=== PATIENT | male | born 1990 | race Caucasian/White ===

== ENCOUNTER 2024-03-15 14:48 | Emergency (ER) | payer MEDICAID, SELFPAY ==
[2024-03-15 14:49] VITALS: BP 125/79; PULSE 69; RESP 16; TEMP 36.6; O2SAT 99; BMI 22.2
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
--- NOTE | 2024-03-15 15:15 | RAD_ITS ---
STUDY: X-RAY - RIGHT HAND, ATTENTION FOURTH FINGER REASON FOR EXAM: Male, 33 years old. Injury to ring finger TECHNIQUE: 3 views of the right fourth finger were obtained. COMPARISON: None. FINDINGS: Normal metacarpal head. Normal metacarpophalangeal joint. Normal proximal phalanx. There is a fracture at the lateral/radial base of the middle phalanx. Normal distal phalanx. Normal distal interphalangeal joint. There is mild soft tissue swelling of the fourth finger. RAD/Finger(s) Min 2 Views IMPRESSION: Fracture at the lateral/radial base of the fourth middle phalanx. Mild soft tissue swelling of the fourth finger. Electronically Signed: Arslan Mcdaniel MD at 15:33 EDT ,
== END 2024-03-15 15:51 | disposition home or self-care (01) ==
LOC: ED 15:43
PROVIDERS: Emergency Provider Emergency Medicine; Visit Provider Emergency Medicine
DX: S62.624A Displaced fracture of middle phalanx of right ring finger, initial encounter for closed fracture (principal); Y04.8XXA Assault by other bodily force, initial encounter
CPT/HCPCS: 73140; 99283

== ENCOUNTER 2024-07-04 15:47 | Emergency (ER) | payer MEDICAID, SELFPAY ==
[2024-07-04 15:47] VITALS: BP 141/73; PULSE 71; RESP 15; TEMP 36.4; O2SAT 97; BMI 21.3
--- NOTE | 2024-07-04 17:16 | CT_ITS ---
EXAM: CT MAXILLOFACIAL WITHOUT INTRAVENOUS CONTRAST CLINICAL INDICATION: facial injury TECHNIQUE: Helically acquired images were obtained of the face without intravenous contrast. CTDIvol = ( 29.38 ) mGy, DLP = ( 518.07 ) mGycm This CT exam was performed using one or more of the following dose reduction techniques: automated exposure control, adjustment of the mA and/or kV according to patient size, and/or use of iterative reconstruction technique. COMPARISON: No relevant prior studies available. FINDINGS: BONES/JOINTS: Acute nasal bone fracture, nondisplaced. No discrete lytic or blastic abnormalities. SOFT TISSUES: Unremarkable. No focal subcutaneous swelling. No discrete fluid collections. ORBITS: Unremarkable. Both globes are unremarkable. Extraocular muscles are normal. Retrobulbar fat appears unremarkable. SINUSES: Mild scattered paranasal sinus mucosal thickening. MASTOID AIR CELLS: Unremarkable as visualized. Clear. DENTAL: No acute findings. No periodontal osseous erosion. CT/Sinus/Facial Bone IMPRESSION: Acute nasal bone fracture, nondisplaced. No other maxillofacial fracture. Electronically Signed: El Ashley MD at 18:44 EST ,
--- NOTE | 2024-07-04 17:16 | CT_ITS ---
EXAM: CT HEAD WITHOUT INTRAVENOUS CONTRAST CLINICAL INDICATION: head injury TECHNIQUE: Multiple axial images were obtained of the head without intravenous contrast. CTDIvol = ( 44.99 ) mGy, DLP = ( 782.05 ) mGycm This CT exam was performed using one or more of the following dose reduction techniques: automated exposure control, adjustment of the mA and/or kV according to patient size, and/or use of iterative reconstruction technique. COMPARISON: No relevant prior studies available. FINDINGS: BRAIN AND EXTRA-AXIAL SPACES: Unremarkable. No intra- or extra-axial hemorrhage. No evidence of acute infarct. No intracranial mass or mass effect. There is preservation of the becker/white matter interface. Posterior fossa structures are unremarkable. Ventricles are appropriate for age. No hydrocephalus. Basal cisterns are patent. BONES/JOINTS: Unremarkable. No discrete lytic or blastic abnormalities. SINUSES: Scattered paranasal sinus mucosal thickening. MASTOID AIR CELLS: Unremarkable. Clear. ORBITS: Visualized globes, extraocular muscles, optic nerves and retrobulbar fat appear unremarkable. CT/Brain/Head without Contrast IMPRESSION: No acute disease Electronically Signed: El Ashley MD at 18:36 EST ,
--- NOTE | 2024-07-04 17:18 | EDS_ITS ---
HPI HPI - Fall History of Present Illness Chief Complaint: Fall Informant: patient Narrative Narrative: Presents for evaluation headache facial pain since a fall 12 days ago. He was helping move heavy armoire onto a truck when he slipped hitting the side. Not lose conscious. Pain to right face is had numbness to his cheek and upper lip since then. Headache for the past week. No nausea or vomiting. Is not on any anticoagulation medications. No other injuries. States he has been working a lot therefore did not have time to get this evaluated. Prior similar symptoms: No PFSH PFSH Allergy/AdvReac Type Severity Reaction Status Date / Time No Known Allergies Allergy Verified 07/04/24 15:47 Social History Smoking Status: Never smoker ROS ROS ED Constitutional Constitutional ED: Denies chills, fever(s) or sweats ENT ENT ED: Denies sore throat Cardiovascular Cardiovascular: Denies chest pain, leg edema, palpitations or racing heartbeat Respiratory/Chest Respiratory/Chest: Denies cough, dyspnea or dyspnea on exertion Gastrointestinal Gastrointestinal: Denies abdominal pain, diarrhea, nausea or vomiting Genitourinary Genitourinary ED: Denies dysuria, hematuria or urinary frequency Musculoskeletal Musculoskeletal: Denies back pain, extremity pain or neck pain Integumentary Denies rash or wounds Neurologic Neurologic: Reports headache(s) and paresthesias; Denies weakness EXAM Physical Exam Const Vital Signs: 07/04/24 15:47 07/04/24 17:10 07/04/24 18:54 Temperature 97.5 F L Temperature Source Temporal Pulse Rate 71 64 Respiratory Rate 15 18 Respiratory Effort Normal Non-Labored Respiratory Depth Normal Respiratory Pattern Normal Blood Pressure 141/73 H 116/79 Blood Pressure Mean 95 91 Pulse Ox 97 98 Oxygen Delivery Method Room Air Room Air 07/04/24 19:39 Temperature 98.0 F Temperature Source Pulse Rate 76 Respiratory Rate 18 Respiratory Effort Respiratory Depth Respiratory Pattern Blood Pressure 110/64 Blood Pressure Mean 79 Pulse Ox 100 Oxygen Delivery Method Positive well nourished and well developed Constitutional Narrative: GCS 15. General Appearance ED: well developed and NAD HEENT Reports moist mucous membranes HEENT Narrative: Tenderness episcopal right side, no TMJ tenderness no trismus. Minimal tenderness zygomatic bone. Decree sensation maxillary right upper lip region. No dental injury. normocephalic and atraumatic Eyes Eyes Narrative: Right lateral strip of subconjunctival hemorrhage, negative Kunal sign. General Eye ED: Yes normal appearance of both eyes Neck full ROM and no lymphadenopathy Chest Wall inspection of chest normal and palpation of chest normal Chest: Negative for tenderness Resp normal respiratory effort and normal air movement Effort and Inspection: symmetric chest movement; Negative for respiratory distress Cardio regular rate, regular rhythm and no murmurs Peripheral Pulses: pulses 2+ throughout GI normal to inspection, nondistended, normoactive bowel sounds and non-tender Palpation: Negative for guarding or rebound tenderness present Back/Spine Back/Spine Narrative: No midline thoracic or lumbar tenderness. Extremity normal to inspection General Extremety ED: Negative for edema or tenderness General Extremity: Negative for edema Neuro oriented x3, CN's II-XII intact bilaterally and no sensory deficits noted Sensorium / Orientation: awake and alert Skin no rashes or lesions noted and no wounds MDM MDM MDM Narrative Medical decision making narrative: Interventions / MDM: Differential diagnosis: Concussion, head injury, fracture Diagnosis considered but do not suspect: Intracranial hemorrhage however CT negative. My EKG interpretation: N/A Imaging independently reviewed and interpreted by myself: CT brain: No acute process. CT facial bone nondisplaced nasal bone fracture also read by radiology. External documents reviewed: N/A Test considered but not ordered:N/A ED course: Head injury concussion symptoms. Tenderness to the temporal region along having paresthesia's along the infraorbital nerve region. Mild tenderness at the zygomatic area. Due to region of tenderness, will obtain CT brain and CT facial bones for further evaluation. CT scan nondisplaced nasal bone fracture no other acute process. Discussed results with the patient. Discussed concussion with the patient. To use T ylenol as needed for headaches. Given ENT referral if he chooses outpatient evaluation. All questions were answered. Re-evaluation: stable Disposition discussed with patient/family/significant other: Patient Case discussed with consulting clinician: N/A This note was generated with [employer] dictation software. It may contain incorrect words, spelling, and punctuation that were not noted in checking the note before signing. Radiography Diagnostic Testing: Clinical Impression(s) from Imaging Studies Brain CT 07/04/24 17:16 IMPRESSION: No acute disease Electronically Signed: El Ashley MD at 18:36 EST , Facial/Sinus 07/04/24 17:16 IMPRESSION: Acute nasal bone fracture, nondisplaced. No other maxillofacial fracture. Electronically Signed: El Ashley MD at 18:44 EST , Discharge Plan Triage Chief Complaint: Fall ED Provider: Reyes Jarvis Dx/Rx/DC Orders Clinical Impression: Concussion, Head injury, Closed fracture nasal bone, Paresthesia, CHIKA (subconjunctival hemorrhage) Instructions: ED Concussion, ED Nose Fracture, with X-Ray, ED Head Injury (Adult) Stand Alone Forms: ED Work / School Excuse Primary Care Provider: Care Physician,No Primary Referrals: Familia Bassett MD [[facility] Staff - Active Staff] - 1-2 Weeks [facility] Doctor,Out of [Non-Staff] - Activity Restrictions/Additional Instructions: Your CT brain and facial bone negative intracranial hemorrhage. No facial bone fracture. Nondisplaced nasal bone fracture. This will heal without any treatment requirements. You have numbness to your cheek likely compression from the nerve from injury, this will take time to improve. Use Tylenol up to 1 g every 6 hours as needed for headache. Follow-up with your doctor. You can follow-up with ENT if you want outpatient evaluation discussion for your nasal bone fracture. Print Language: Chinese Disposition Disposition: Home, Self Care Discharge Date/Time: 07/04/24 19:39
--- NOTE | 2024-07-04 18:37 | CM.ED ---
Social Work Reason for visit: No PCP Patient verified that he does not have a primary care physician at this time. [facility] provider directory given to patient. No further needs identified at this time. Lorna Sofia, PAINTER FOREMAN, [employer] ENGINEER
[2024-07-04 18:54] VITALS: BP 116/79; PULSE 64; RESP 18; O2SAT 98
[2024-07-04 19:39] VITALS: BP 110/64; PULSE 76; RESP 18; TEMP 36.7; O2SAT 100
== END 2024-07-04 19:39 | disposition home or self-care (01) ==
PROVIDERS: Emergency Provider Emergency Medicine; Referring Provider Emergency Medicine; Visit Provider Emergency Medicine
DX: S06.0X0A Concussion without loss of consciousness, initial encounter (principal); S02.2XXA Fracture of nasal bones, initial encounter for closed fracture; R20.2 Paresthesia of skin; W19.XXXA Unspecified fall, initial encounter
CPT/HCPCS: 70450; 70486; 99282

== ENCOUNTER 2025-02-13 19:32 | Emergency (ER) | payer MEDICAID, SELFPAY ==
[2025-02-13 19:33] VITALS: BP 139/110; PULSE 84; RESP 18; TEMP 37; O2SAT 98; BMI 25.1
== END 2025-02-13 20:38 | disposition left against medical advice (07) ==
LOC: ED 20:54
DX: Z53.21 Procedure and treatment not carried out due to patient leaving prior to being seen by health care provider (principal)

== ENCOUNTER 2025-04-02 15:29 | Emergency (ER) | payer MEDICAID, SELFPAY ==
[2025-04-02 15:31] VITALS: BP 135/98; PULSE 98; RESP 16; TEMP 36.9; O2SAT 98; BMI 22.3
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
--- OUTSIDE RECORDS SUMMARY | 2025-04-02 16:10 | XMS RPT_ITS | CCD ---
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 Physician Facility:[facility] [place] Start: 10-01-2024 End: 10-01-2024 ambulatory IRENE CAMPOS Facility:[facility] Start: 07-04-2024 End: 07-04-2024 Emergency department patient visit No Primary Care Physician Facility:[facility] Start: 07-01-2024 End: 07-01-2024 Patient encounter procedure Berenice Pacheco LEAD [employer]MER[employer] Work Phone: [facility] Comment on above: Procedure not carmencita d out (Primary Dx) Start: 07-01-2024 End: 07-01-2024 ambulatory IRENEDELMA QUIÑONEZK Facility:[facility] Start: 03-15-2024 End: 03-15-2024 Emergency department patient visit Remus Lorenzo Facility:[facility] Start: 06-26-2023 End: 06-26-2023 ambulatory AMANDA CATALAN [facility] Start: 05-14-2023 Unknown NONE NONE [facility] Plan of Treatment Date Care Activity Detail Author Start: 2024 Lipid panel Lipid Screening [facility] Start: 02-07-2024 Covid-19 Vaccine ( season) Covid-19 Vaccine ( season) [facility] Start: 02-07-2024 Influenza vaccination Influenza Vacc ine (#1) [facility] Start: 04-11-2023 Urine microalbumin profile DTa P,Tdap,Td Vaccine (1 - Tdap) [facility] Start: 2008 Hepatitis B Vaccine (1 of 3 - 19+ 3-dose series) Hepatitis B Vaccine (1 of 3 - 19+ 3-dose series) [facility] Start: 2007 Anxiety Screening Anxiety Screening [facility] Start: 2007 [facility]: 2007 Hepatitis C screening Hepatitis C Zay escamilla [facility] Payers Date Payer Category Payer Self-pay 2023 Medicaid [employer] [place] [id number] 2023-Present [phone] [address] [place] [address] Medicaid [id number] 2023 Unknown [id number] 1989 Unknown [id number] Unknown [id number] Unknown [id number] Unknown [id number] Unknown [id number] Social History Date Type Detail Facility Tobacco smoking status TXIS Tobacco smoking consumption unknown [facility] Start: 1990 Sex assigned at Not on file [facility] Gender identity Not on file [facility] in Start: 07-04-2024 Tobacco smoking status TXIS Never smoked tobacco (finding) [facility] Start: 1990 Sex Assigned At Male [facility] Progress note 10-01-2024 Note Date & Type Note Facility 10-01-2024 Note HNO ID: [id number] Author: IRENE CAMPOS APRN.HOME [employer] Service: ? Author Type: Nurse Practitioner Type: Progress Notes Filed: 10/01/2024 12:51 Note Text: Subjective The history is provided by the patient. No inspector fuel hose was used. AAMIR Weinberg is a 34 year old male who presents today for CC of vomiting 2 times a day for 4 days. He denies any diarrhea, does feel nauseous. He does admit to daily marijuana/thc use. He denies any fever, chills or body aches. He also thought he was here for a fracture of the 4th PIP area was to see a hand surgeon, but did not go needs a referral. In reviewing chart, patient has a h/o polysubstance drug abuse, hepatitis C. I did not see any record of finger fracture or treatment. Patient states he was seen here is [facility], and given referral to [facility] did not go. Needs work note. BP 122/71 Pulse 67 Temp 36.3 ?C (97.3 ?F) Resp 18 Wt 69.2 kg (152 lb 8.9 oz) SpO2 98% Social History Tobacco Use Smoking status: Never Smokeless tobacco: Never No past medical history on file. I have confirmed and edited as necessary, the [facility] Review of Systems Constitutional: Negative for chills and fever. Gastrointestinal: Positive for nausea and vomiting. Negative for abdominal pain and diarrhea. Genitourinary: Negative for dysuria, flank pain, frequency, hematuria and urgency. Musculoskeletal: Positive for joint pain (4th pip joint). Objective Physical Exam Vitals and nursing note reviewed. Pulmonary: Effort: Pulmonary effort is normal. Abdominal: General: Bowel sounds are normal. There is no distension or abdominal bruit. Palpations: Abdomen is soft. There is no hepatomegaly or mass. Tenderness: There is generalized abdominal tenderness. Skin: General: Skin is warm and dry. Neurological: Mental Status: He is alert and oriented to person, place, and time. Psychiatric: Mood and Affect: Affect normal. History and Record Review Clinical information obtained from an independent historian. History obtained from or confirmed by: family member. External record(s) reviewed: prior outpatient record. ASSESSMENT/PLAN: 1. Nausea and vomiting, unspecified vomiting type - ICD9: 787.01, ICD10: R11.2 (primary diagnosis) Possible viral, possible thc use Advise to stop marijuana use, see if has impact Due to history of Hep C, needs to establish with Primary care and get workup 2. Finger swelling - ICD9: 729.81, ICD10: M79.89 Referral to hand specialist Diagnosis and treatment plan were discussed and questions were answered to the patient's satisfaction. Pt acknowledged understanding of concepts and follow up plan. Specific signs and symptoms that would indicate the need for higher level of care were discussed in detail warranting prompt ER evaluation. Irene Campos APRN.LAZARUS [facility] Progress note 07-01-2024 Note Date & Type Note Facility 07-01-2024 Note HNO ID: [id number] Author: BERENICE PACHECO APRN.[facility]ZARUS Service: ? Author Type: Nurse Practitioner Type: Progress Notes Filed: 07/01/2024 12:02 Note Text: Nontoxic appearing male presents urgent care chief complaint head injury. Patient states 3 days ago he slipped hitting his head on the side of his truck. Has right sided facial numbness. Has some redness in his eye. On evaluation patient symptoms I explained that we are unable to evaluate head injuries in urgent care. Referred to ED. Verbalized understand agrees with plan of care. Berenice Pacheco APRN.CNP [facility] History of Present illness Narrative 07-01-2024 Berenice Pacheco APRN.CNP - 07/01/2024 11:51 AM EST Note Date & Type Note Facility 07-01-2024 History of Presen t illness Narrative Nontoxic appearing male presents urgent care chief complaint head injury. Patient states 3 days ago he slipped hitting his head on the side of his truck. Has right sided facial numbness. Has some redness in his eye. On evaluation patient symptoms I explained that we are unable to evaluate head injuries in urgent care. Referred to ED. Verbalized understand agrees with plan of care. Berenice Pacheco APRN.LAZARUS documented in this encounter [facility] Evaluation note Note Date & Type Note Facility Evaluation note Diagnosis Procedure not carried out- Primary Procedure not carried out for other reasons documented in this encounter [facility] Evaluation note Note Date & Type Note Facility Evaluation note No assessment information availa ble [facility] Work Phone: Reason for referral (narrative) Note Date & Type Note Facility Reason for referral (narrative) No reason for referral information available [facility] Work Phone: Summary Purpose Family History No Family History Records FoundNo Family History Records FoundNo Family History Records FoundNo Family History Records Found Advance Directives No Advanced Directives Records FoundNo Advanced Directives Records FoundNo Advanced Directives Records FoundNo Advanced Directives Records Found Chief Complaint and Reason for Visit Chief Complaint Admit Date C/O February 13, 2025 7:32pm Additional Source Comments (unrecognized sect ion and content) No Status Records FoundNo Status Records FoundNo Status Records FoundNo Status Records Found INFORMATION SOURCE (unrecogn ized section and content) DATE CREATED AUTHOR 06/13/2023 [facility] DATE CREATED AUTHOR AUTHOR'S ORGANIZ ATION 07/06/2023 [facility] DATE CREATED AUTHOR AUTHOR'S ORGANIZ ATION 10/12/2024 [facility] DATE CREATED AUTHOR AUTHOR'S ORGANIZ ATION 02/19/2025 [facility] Source Comments (unrecognize d section and content) In the event this informatio n is protected by the Federal Confidentiality of Alcohol and Drug Abuse Patient Records regulations: The Federal rules restrict any use of the information to criminally investigate or prosecute any alcohol or drug abuse patient.[facility] Care Teams (unrecognized sec tion and content) Team Status: Active Member Role/Relationship Status Dates No Primary Care Physician Primary Care Provider Active Team Status: Inactive Member Role/Relationship Status Dates No Primary Care Physician Primary Care Provider Active Start: February 13, 2025 End: February 13, 2025 Ed Physician Provider Emergency Provider Active Start: February 13, 2025 End: February 13, 2025 Goals (unrecognized section and content) Goals may be documented in a n alternate section FOR RECORDS PERTAINING TO PATIENTS WHO ARE OR HAVE BEEN ENROLLED IN A CHEMICAL DEPENDENCY/SUBSTANCEABUSE PROGRAM, SOME INFORMATION MAY BE OMITTED. This clinical summary was aggregated from multiple sources. Caution should be exercised in using it in the provision of clinical care. This summary normalizes information from multiple sources, and as a consequence, information in this document may materially change the coding, format and clinical context of patient data. In addition, data may be omitted in some cases. CLINICAL DECISIONS SHOULD BE BASED ON THE PRIMARY CLINICAL RECORDS. [employer] [facility]. provides no warranty or guarantee of the accuracy or completeness of information in this document.
[2025-04-02 16:29] LABS: Mucous, Urine 0 SEEN /hpf (<or=2+); Red Blood Cells-Urine 0 SEEN /hpf (0-5); Squamous Epithelial Cells - UA 0 SEEN /hpf (0-5)
[2025-04-02 16:37] LABS: Color, Urine Yellow (Yellow); Glucose, Dipstick Normal (Normal); Ketone-Dipstick Negative (Negative); Leukocyte Esterase-Dipstick 25 /ul (Negative); Nitrite-Dipstick Negative (Negative); Occult Blood-Urine Negative /ul (Negative); Protein-Dipstick 30 mg/dl (Negative); Specific Gravity, Urine 1.015 (1.002-1.030); Urine Bilirubin Dipstick Negative (Negative)
[2025-04-02 16:46] LABS: HIV Nonreactive (Nonreactive); Syphilis Antibodies Nonreactive (Nonreactive)
[2025-04-02 17:00] VITALS: BP 135/98; PULSE 98; RESP 16; TEMP 36.9; O2SAT 98
== END 2025-04-02 17:52 | disposition home or self-care (01) ==
LOC: ED 16:08
PROVIDERS: Emergency Provider Emergency Medicine; Visit Provider Emergency Medicine
DX: Z11.3 Encounter for screening for infections with a predominantly sexual mode of transmission (principal)
CPT/HCPCS: 81001; 86703; 86780; 87491; 87591; 87661; 99282